=== PATIENT | male | born 2000 | race Caucasian/White ===

== ENCOUNTER 2020-03-30 08:05 | Emergency (ER) | payer SELFPAY ==
--- NOTE | 2020-03-30 09:15 | EDM.PDOC ---
ED HPI GENERAL MEDICAL PROBLEM - General Chief Complaint: Gastrointestinal Problem Stated Complaint: DIARRHEA AND VOMITING Time Seen by Provider: 03/30/20 08:32 Source of Information: Reports: Patient History Limitations: Reports: No Limitations - History of Present Illness INITIAL COMMENTS - FREE TEXT/NARRATIVE: This is a very pleasant 20-year-old male with no past medical history presenting with infectious symptoms. He reports a 5-day history of nausea, vomiting, diarrhea, cough, intermittent headache, and chills. One of his coworkers was diagnosed with COVID-19 last week. Symptoms have persisted, seeking him to seek evaluation in the emergency department. He has not been taking any medications at home before arrival. He denies any headache, neck stiffness, shortness of breath, chest pain, and difficulty speaking or swallowing, back pain, hematemesis, bloody stools, rash. Past medical history: Reviewed, no additional pertinent history. Surgical history: Reviewed in system, no additional pertinent history. Social history: Reviewed in system, no additional pertinent history. Family history: Reviewed in system, no additional pertinent history. Limited physical examination was performed due to COVID pandemic, distanced physical examination to prevent physician exposure and to preserve PPE. Vital signs reviewed. Nursing notes reviewed. Constitutional: Awake, alert, non-distressed. Head: Normocephalic, atraumatic. Eyes: No scleral icterus. Neck: Able to fully flex and extend. Fully rotates side to side. Cardiovascular: No extremity edema. Pulmonary: normal work of breathing, no accessory muscle use. Speaking in full sentences, handling secretions well. Abdomen/GI: nondistended, nontender Musculoskeletal: No deformities. Integumentary: Appropriate color for ethnicity, warm, dry, no pallor or jaundice, no rash. Neurologic: Alert, answering questions appropriately, normal speech, no facial droop, moving all extremities well. Normal voice. Psychiatric: Appropriate mood and affect, normal thought process. This patient was seen and evaluated during the 2019 SARS-CoV-2 novel coronavirus pandemic period. Community viral transmission is ongoing at time of this encounter and widespread universal testing is not currently available in our emergency department. - Related Data Allergies Allergy/AdvReac Type Severity Reaction Status Date / Time No Known Allergies Allergy Verified 03/30/20 08:24 Home Meds: Home Meds Loperamide HCl [Imodium A-D] 2 mg PO Q4H PRN #20 tablet 03/30/20 [Rx] Ondansetron [Zofran] 4 mg PO Q8H PRN #15 tab 03/30/20 [Rx] Past Medical History - Past Surgical History GI Surgical History: Reports: Hernia Repair/Other Social & Family History - Tobacco Use Tobacco Use Status *Q: Never Tobacco User - Recreational Drug Use Recreational Drug Use: No ED ROS GENERAL - Review of Systems Review Of Systems: See Below ED EXAM, GENERAL - Physical Exam Exam: See Below Course - Vital Signs Text/Narrative:: Patient hemodynamically stable, afebrile, well-appearing, looks nontoxic. Differential diagnosis includes but is not limited to: COVID-19 infection, acute viral syndrome, viral gastroenteritis, less likely volume depletion or electrolyte disturbance, etc. Abdomen soft and nontender. No peritoneal signs. Patient does not appear systemically ill or toxic. Suspect an acute viral infection. Rapid Covid testing is negative, stay PCR swab was sent. I explained the patient it is possible that he actually has COVID-19 in the limitations of the rapid test including possibility of a false negative result. I instructed him to isolate at home until he has been well for at least 24 hours. We discussed symptomatic treatment with [id number] Tylenol and Motrin, plenty of fluids, and I sent a prescription for Zofran and Imodium to the pharmacy. We discussed return precautions and he voiced understanding. Plan: Patient is stable to discharge home with outpatient primary care clinic follow-up. Strict emergency department return precautions were provided, patient indicated understanding. All questions were answered prior to departure. Discharged in good condition. Last Recorded V/S: Last Vital Signs Temp 37.2 C 03/30/20 08:54 Pulse 58 L 03/30/20 09:22 Resp 16 03/30/20 09:22 BP 127/74 03/30/20 09:22 Pulse Ox 100 03/30/20 09:22 - Orders/Labs/Meds Orders: Active Orders 24 hr Category Date Time Status CORONAVIRUS COVID-19 PCR [facility] Stat Lab 03/30/20 08:45 Received Labs: Laboratory Tests 03/30/20 Range/Units 08:45 SARS CoV-2 RNA Rapid HONG NEGATIVE (NEGATIVE) Departure - Departure Time of Disposition: 09:20 Disposition: Home, Self-Care 01 Condition: Good Clinical Impression: Acute viral syndrome, Nausea, vomiting, and diarrhea, Encounter for laboratory testing for COVID-19 virus - Discharge Information *PRESCRIPTION DRUG MONITORING PROGRAM REVIEWED*: Not Applicable *COPY OF PRESCRIPTION DRUG MONITORING REPORT IN PATIENT SONI: Not Applicable Prescriptions: Loperamide HCl [Imodium A-D] 2 mg PO Q4H PRN #20 tablet PRN Reason: Diarrhea Ondansetron [Zofran] 4 mg PO Q8H PRN #15 tab PRN Reason: Nausea/Vomiting Instructions: Diarrhea, Adult, Viral Illness, Adult Referrals: [facility] [Provider Group] - 1 Week (As needed) Forms: ED Department Discharge Additional Instructions: You were seen in the emergency department for vomiting and diarrhea. Your symptoms are likely due to a viral illness. Your COVID-19 test was negative, this is not definitive. It is possible to still have COVID-19 despite a false negative test result. I recommend that you isolate at home until you have been feeling better for at least 24 hours which includes no fever, chills, coughing, body aches, etc. Be sure to wash your hands frequently and cover your face with a face covering her mask. Do not let anybody eat or drink after you. I sent the prescriptions to the pharmacy for nausea and diarrhea medications. You can take Tylenol or Motrin [id number] for pain or fever. Please follow the family medicine clinic in the next week or so if you are not feeling better. Warning signs to come back to the ER include severe abdominal or chest pain, shortness of breath, bloody stools or vomit, or any other new or concerning symptoms. Please return the emergency department immediately if your symptoms worsen or if you feel worse. Thank you for choosing the [facility] emergency department in [place] for your medical needs today. It was a pleasure caring for you. The following information is given to patients seen in the emergency department who are being discharged. This information is to outline your options for follow-up care. We provide all patients seen in our emergency department with a follow-up referral. The need for follow-up, as well as the timing and circumstances, are variable depending upon the specifics of your emergency department visit. If you don't have a primary care physician on staff, we will provide you with a referral. We always advise you to contact your personal physician following an emergency department visit to inform them of the circumstance of the visit and for follow-up with them and/or the need for any referrals to a consulting specialist. The emergency department will also refer you to a specialist when appropriate. This referral assures that you have the opportunity for follow-up care with a specialist. All of these measure are taken in an effort to provide you with optimal care, which includes your follow-up. Under all circumstances we always encourage you to contact your private physician who remains a resource for coordinating your care. When calling for follow-up care, please make the office aware that this follow-up is from your recent emergency room visit. If for any reason you are refused follow-up, please contact the [facility] Emergency Department at and asked to speak to the emergency department charge nurse. If you do not have a primary care physician that is caring for you, you can contact these clinics below to set up an appointment to establish care: [facility] - Primary Care [address] [place] [id number] [facility] [address] [place] [id number] Sepsis Event Note (ED) - Evaluation Sepsis Screening Result: No Definite Risk - Focused Exam Vital Signs: Vital Signs Temp Pulse Resp BP Pulse Ox 03/30/20 09:22 58 L 16 127/74 100 03/30/20 08:54 37.2 C 57 L 16 118/73 98 03/30/20 08:21 37.4 C 63 16 133/70 99 - My Orders Last 24 Hours: My Active Orders 03/30/20 08:45 CORONAVIRUS COVID-19 PCR [facility] Stat - Assessment/Plan Last 24 Hours: My Active Orders 03/30/20 08:45 CORONAVIRUS COVID-19 PCR [facility] Stat
== END 2020-03-30 09:38 | disposition home or self-care (01) ==
LOC: MW.ED 08:05
DX: B34.9 Viral infection, unspecified (principal); Z20.828 Contact with and (suspected) exposure to other viral communicable diseases
CPT/HCPCS: 99284; U0002

== ENCOUNTER 2020-09-30 16:26 | Emergency (ER) | payer SELFPAY ==
[2020-09-30] MEDS ORDERED: Sodium Chloride 0.9% 1,000 ML IV ONE (17:49)
[2020-09-30 18:51] LABS: BLOOD UREA NITROGEN,BUN 14 mg/dL (7.0-18.0); CARBON DIOXIDE,CO2 27.9 mmol/L (21.0-32.0); CHLORIDE,CL 104 mmol/L (98-107); GLUCOSE RANDOM 90 mg/dL (74-106); LIPASE 95 U/L (73-393); POTASSIUM,K 3.7 mmol/L (3.5-5.1); SODIUM,NA 141 mmol/L (136-148)
--- NOTE | 2020-09-30 19:12 | CT ---
INDICATION: RIGHT FLANK PAIN CT ABDOMEN AND PELVIS WITHOUT CONTRAST TECHNIQUE: Multidetector CT imaging was performed through the abdomen and pelvis without intravenous or oral contrast. Coronal and sagittal reconstructions were generated. COMPARISON: None. FINDINGS: No stones are visualized within the kidneys, ureters, or urinary bladder. There is no ureteral dilation, hydronephrosis, or perinephric/periureteral stranding to suggest ureteral obstruction. Included portions of the lower chest show the lung bases to be clear. No abnormalities are demonstrated in the unenhanced liver, spleen, gallbladder, pancreas, stomach, and adrenals. Bowel loops are of normal caliber and demonstrate no wall thickening. The appendix is normal. No free fluid or free air is identified. The abdominal aorta appears normal in caliber. No abnormally enlarged lymph nodes are seen. The urinary bladder, prostate, and seminal vesicles are within normal limits. Visualized bones show no acute findings. IMPRESSION: No acute abnormality identified. No cause for the patient`s symptoms is apparent. TROY POTTER MD [employer] Dictated by: Aidan Potter MD @ 09/30/2020 19:11:20 (Electronically Signed)
--- NOTE | 2020-09-30 19:14 | EDM.PDOC ---
ED HPI GENERAL MEDICAL PROBLEM - General Chief Complaint: Back Pain or Injury Stated Complaint: LOWER BACK PAIN Time Seen by Provider: 09/30/20 17:08 Source of Information: Reports: Patient History Limitations: Reports: No Limitations - History of Present Illness INITIAL COMMENTS - FREE TEXT/NARRATIVE: HISTORY AND PHYSICAL: History of present illness: Patient is a 20-year-old male who presents to the ED today with concern of bilateral flank pain, worse on the right than the left has been ongoing over the past 1 week. Patient states that 1 week ago he thought he had a viral illness and states that he had a "GI bug "and states he was having diarrhea and vomiting. Patient states that on the day that his symptoms improved, he began having right flank pain and states that occasionally having some left-sided flank pain as well. Patient describes as sharp and states that it comes and goes. Patient states that he was also concerned because his urine has been dark in color ever since starting with the pain. Patient states he has not taken any medications for his symptoms and denies any health history. Patient denies any trauma or injury. Patient states that he is in a monogamous relationship and has been so for many years. Patient denies fever, chills, chest pain, shortness of breath, or cough. Denies headache, neck stiff ness, change in vision, syncope, or near syncope. Denies nausea, vomiting, abdominal pain, diarrhea, constipation, or dysuria. Has not noted any blood in urine or stool. Patient has been eating and drinking appropriately. Review of systems: As per history of present illness and below otherwise all systems reviewed and negative. Past medical history: As per history of present illness and as reviewed below otherwise noncontributory. Surgical history: As per history of present illness and as reviewed below otherwise noncontributory. Social history: See social history for further information Family history: As per history of present illness and as reviewed below otherwise noncontributory. Physical exam: General: Patient is alert, oriented, and in no acute distress. Patient sitting comfortably on exam table. Vitals stable and reviewed by me. HEENT: Atraumatic, normocephalic, pupils equal and reactive bilaterally, negative for conjunctival pallor or scleral icterus, mucous membranes moist, TMs normal bilaterally, throat clear, neck supple, nontender, trachea midline. No drooling or trismus noted. No meningeal signs. No hot potato voice noted. Lungs: Clear to auscultation, breath sounds equal bilaterally, chest nontender. Heart: S1S2, regular rate and rhythm without overt murmur Abdomen: Soft, nondistended, nontender. Negative for masses or hepatosplenomegaly. Negative for costovertebral tenderness but tenderness over the left sided flank area to palpation. Pelvis: Stable nontender. Genitourinary: Deferred. Rectal: Deferred. Skin: Intact, warm, dry. No lesions or rashes noted. Extremities: Atraumatic, negative for cords or calf pain. Neurovascular unremarkable. Neuro: Awake, alert, oriented. Cranial nerves II through XII unremarkable. Cerebellum unremarkable. Motor and sensory unremarkable throughout. Exam nonfocal. Notes: Signs and symptoms that would prompt return to the ED thoroughly discussed with patient. Discussed importance for follow-up with a primary care provider. Voices understanding and is agreeable to plan of care. Denies any further questions or concerns at this time. Diagnostics: CBC, CMP, UA, G&C, Abd/Pelvic CT w/o cont Therapeutics: None Prescription: None Impression: Right flank pain Plan: 1. You can alternate ibuprofen and Tylenol as directed for pain and discomfort. 2. Follow-up with your primary care provider as discussed. Return to the ED as needed and as discussed. Definitive disposition and diagnosis as appropriate pending reevaluation and review of above. flanks Pain Score (Numeric/FACES): 6 - Related Data Allergies Allergy/AdvReac Type Severity Reaction Status Date / Time No Known Allergies Allergy Verified 09/30/20 17:20 Home Meds: Home Meds . [No Known Home Meds] 09/30/20 [History] Past Medical History - Past Surgical History GI Surgical History: Reports: Hernia Repair/Other Social & Family History - Family History Family Medical History: No Pertinent Family History - Caffeine Use Caffeine Use: Reports: None - Recreational Drug Use Recreational Drug Use: No ED ROS GENERAL - Review of Systems Review Of Systems: Comprehensive ROS is negative, except as noted in HPI. ED EXAM, GENERAL - Physical Exam Exam: See Below (see dictation) Course - Vital Signs Last Recorded V/S: Last Vital Signs Temp 97.8 F 09/30/20 19:29 Pulse 56 L 09/30/20 19:29 Resp 18 04/27/21 19:29 BP 111/56 L 09/30/20 19:29 Pulse Ox 97 09/30/20 19:29 - Orders/Labs/Meds Orders: Active Orders 24 hr Category Date Time Status CHLAMYDIA AND GONORRHEA BY TMA Stat Lab 09/30/20 17:13 Received Labs: Laboratory Tests 09/30/20 09/30/20 09/30/20 Range/Units 16:07 16:07 17:13 WBC 9.70 (4.0-11.0) K/uL RBC 4.99 (4.50-5.90) M/uL Hgb 14.7 (13.0-17.0) g/dL Hct 43.9 (38.0-50.0) % MCV 88.0 (80.0-98.0) fL MCH 29.5 (27.0-32.0) pg MCHC 33.5 (31.0-37.0) g/dL RDW Std Deviation 39.9 (28.0-62.0) fl RDW Coeff of Delmy 13 (11.0-15.0) % Plt Count 307 (150-400) K/uL MPV 9.10 (7.40-12.00) fL Neut % (Auto) 50.0 (48.0-80.0) % Lymph % (Auto) 41.2 H (16.0-40.0) % Frontier % (Auto) 7.2 (0.0-15.0) % Eos % (Auto) 1.4 (0.0-7.0) % Baso % (Auto) 0.2 (0.0-1.5) % Neut # (Auto) 4.8 (1.4-5.7) K/uL Lymph # (Auto) 4.0 H (0.6-2.4) K/uL Frontier # (Auto) 0.7 (0.0-0.8) K/uL Eos # (Auto) 0.1 (0.0-0.7) K/uL Baso # (Auto) 0.0 (0.0-0.1) K/uL Nucleated RBC % 0.0 /100WBC Nucleated RBCs # 0 K/uL Sodium 141 (136-148) mmol/L Potassium 3.7 (3.5-5.1) mmol/L Chloride 104 (98-107) mmol/L Carbon Dioxide 27.9 (21.0-32.0) mmol/L BUN 14 (7.0-18.0) mg/dL Creatinine 1.1 (0.8-1.3) mg/dL Est Cr Clr Drug Dosing 125.90 mL/min Estimated GFR (MDRD) > 60.0 ml/min Glucose 90 (74-106) mg/dL Calcium 8.8 (8.5-10.1) mg/dL Total Bilirubin 0.4 (0.2-1.0) mg/dL AST 27 (15-37) IU/L ALT 70 H (14-63) IU/L Alkaline Phosphatase 123 H (46-116) U/L Total Protein 7.8 (6.4-8.2) g/dL Albumin 4.0 (3.4-5.0) g/dL Globulin 3.8 (2.6-4.0) g/dL Albumin/Globulin Ratio 1.1 (0.9-1.6) Lipase 95 (73-393) U/L Urine Color YELLOW Urine Appearance CLEAR Urine pH 6.5 (5.0-8.0) Ur Specific [place] 1.025 (1.001-1.035) Urine Protein NEGATIVE (NEGATIVE) mg/dL Urine Glucose (UA) NEGATIVE (NEGATIVE) mg/dL Urine Ketones NEGATIVE (NEGATIVE) mg/dL Urine Occult Blood NEGATIVE (NEGATIVE) Urine Nitrite NEGATIVE (NEGATIVE) Urine Bilirubin NEGATIVE (NEGATIVE) Urine Urobilinogen 0.2 (<2.0) EU/dL Ur Leukocyte Esterase NEGATIVE (NEGATIVE) Meds: Medications Discontinued Medications Generic Name Dose Route Start Last Admin Trade Name Shlomo PRN Reason Stop Dose Admin Sodium Chloride 1,000 mls @ 999 mls/hr 09/30/20 17:49 09/30/20 17:55 Normal Saline IV 09/30/20 18:49 999 mls/hr BOLUS ONE Administration Departure - Departure Time of Disposition: 19:13 Disposition: Home, Self-Care 01 Clinical Impression: Right flank pain - Discharge Information Instructions: Flank Pain, Adult Referrals: PCP,None [Primary Care Provider] - Forms: ED Department Discharge Additional Instructions: The following information is given to patients seen in the emergency department who are being discharged to home. This information is to outline your options for follow-up care. We provide all patients seen in our emergency department with a follow-up referral. The need for follow-up, as well as the timing and circumstances, are variable depending upon the specifics of your emergency department visit. If you don't have a primary care physician on staff, we will provide you with a referral. We always advise you to contact your personal physician following an emergency department visit to inform them of the circumstance of the visit and for follow-up with them and/or the need for any referrals to a consulting specialist. The emergency department will also refer you to a specialist when appropriate. This referral assures that you have the opportunity for follow-up care with a specialist. All of these measure are taken in an effort to provide you with optimal care, which includes your follow-up. Under all circumstances we always encourage you to contact your private physician who remains a resource for coordinating your care. When calling for follow-up care, please make the office aware that this follow-up is from your recent emergency room visit. If for any reason you are refused follow-up, please contact the [facility] Emergency Department at and asked to speak to the emergency department charge nurse. [facility] [address] [place] [address] [place] [address] 1. You can alternate ibuprofen and Tylenol as directed for pain and discomfort. 2. Follow-up with your primary care provider as discussed. Return to the ED as needed and as discussed. Sepsis Event Note (ED) - Evaluation Sepsis Screening Result: No Definite Risk - Focused Exam Vital Signs: Vital Signs Temp Pulse Resp BP Pulse Ox 09/30/20 19:29 97.8 F 56 L 18 111/56 L 97 09/30/20 17:18 98.2 F 82 16 145/86 H 97 - My Orders Last 24 Hours: My Active Orders 09/30/20 17:13 CHLAMYDIA AND GONORRHEA BY [facility] Stat - Assessment/Plan Last 24 Hours: My Active Orders 09/30/20 17:13 CHLAMYDIA AND GONORRHEA BY TMA Stat
[2020-10-02 11:03] LABS: C.TRACHOMATIS BY TMA Negative (Negative); N.GONORRHOEAE BY TMA Negative (Negative)
== END 2020-09-30 19:30 | disposition home or self-care (01) ==
LOC: MW.ED 16:26
DX: R10.9 Unspecified abdominal pain (principal)
CPT/HCPCS: 36415; 74176; 80053; 81003; 83690; 85025; 87491; 87591; 99284; J7030; 99283

== ENCOUNTER 2020-10-16 06:46 | Emergency (ER) | payer SELFPAY ==
--- NOTE | 2020-10-16 07:41 | EDM.PDOC ---
ED HPI GENERAL MEDICAL PROBLEM - General Chief Complaint: Abdominal Pain Stated Complaint: POSSIBLE KIDNEY STONES Time Seen by Provider: 10/16/20 07:12 - History of Present Illness INITIAL COMMENTS - FREE TEXT/NARRATIVE: CHIEF COMPLAINT(S): Here for repeat labs HISTORY OF PRESENT ILLNESS: This is a 20-year-old man without any significant past medical history who comes to the emergency department with a chief complaint of here for repeat labs. The patient states that for off-and-on for the last month he has been experiencing stuffy nose, eye watering, and frontal headache associated with sore throat which she describes as a drip. He states that his son and are having similar symptoms he is never really had anything like this before. He denies any chest pain or shortness of breath. He states that he does feel weak and fatigued. He states that he does not have a primary care physician and is moving here to [place]. He states that he was told to come back because of elevated liver enzymes for repeat. In addition he states that he has missed 3 days of work. He denies any other symptoms. He states that his last visit he was concerned about some right flank and right upper abdominal pain. He states that he does have some continued abdominal pain in the right upper quadrant which is rated 3 out of 10. He states that it is intermittent. He does not know any exacerbating factors. He denies any relieving factors. Denies any associated nausea or vomiting. He denies any diarrhea, constipation, melena, hematemesis, bilious emesis. REVIEW OF SYSTEMS: Constitutional: Denies fever, chills. Eyes: Denies eye pain Ears, Nose, Mouth, & Throat: Positive for runny nose, watery eyes, congestion. Denies earache Cardiovascular: Denies chest pain Respiratory: Denies shortness of breath Gastrointestinal: Denies Nausea, vomiting, diarrhea, hematochezia. Genitourinary: Denies hematuria Skin:Denies a rash MSK: Denies joint pain Neurological: Denies blurred vision Psychiatric: Denies depression PAST MEDICAL HISTORY: As per history of present illness and as reviewed below otherwise noncontributory. SURGICAL HISTORY: As per history of present illness and as reviewed below otherwise noncontributory. SOCIAL HISTORY: As per history of present illness and as reviewed below otherwise noncontributory. FAMILY HISTORY: As per history of present illness and as reviewed below otherwise noncontributory. EXAMINATION OF ORGAN SYSTEMS/BODY AREAS: Constitutional: Blood pressure is 132/74, heart rate 77, respiratory rate 17 with an oxygen saturation 95% on room air. Temperature 36.2 General: Overall well-appearing man who is in no acute distress Psychiatric: Appropriate mood and affect. Eyes: No scleral icterus or conjunctival erythema ENMT: Moist mucous membranes. No pharyngeal erythema there is some cobblestoning of the posterior pharynx with evidence of postnasal drip. There is clear nasal drainage. Cardiovascular: Regular, rate, and rhythm. No gallops, murmurs, or rubs. Bilateral upper extremity pulses symmetric and intact. No peripheral edema. No JVD. Respiratory: Lungs clear to auscultation bilaterally. No wheezes, rales, or rhonchi. Gastrointestinal: Soft, non-tender, non-distended. Normoactive bowel sounds no rebound or guarding Genitourinary: No suprapubic tenderness Musculoskeletal: Normal range of motion. Skin: No lesions or abrasions. Neurological: Alert, GCS 15 MEDICAL DECISION MAKING AND COURSE IN THE ED WITH INTERPRETATION/REVIEW OF DIAGNOSTIC STUDIES: This is a 20-year-old man without any significant past medical history who comes to the emergency department with what appears to be symptoms of allergic rhinitis and concern for elevated liver enzymes. At this time I do not believe an emergent condition exists however we will obtain repeat CMP for evaluation. Given his right upper quadrant pain this could be secondary to cholelithiasis versus cholecystitis we will obtain a right upper quadrant ultrasound. We will also obtain a Tylenol level. I did discuss with him that even if the enzymes are elevated I would like him to follow-up with his primary care physician when he moves to [place]. I did discuss the use of Zyrtec at night and Flonase spray for his allergy symptoms. He was amenable to this. I did send the Flonase to the pharmacy. Laboratory: CMP reveals transaminitis with an AST of 61, ALT of 139 and alkaline phosphatase of 170. Tylenol level is negative. The radiological images were viewed by myself along with reading the report from the radiologist. Right upper quadrant ultrasound reveals gallbladder sludge without any evidence of cholecystitis or ductal dilation. After labs and imaging the patient continued to remain stable. I did discuss the results with the patient. I did discuss with him that given the gallbladder sludge he needs to return to the emergency department if he has worsening pain. Otherwise given that he is moving to [place] he needs to set up an appointment with a primary care physician for any referral to general surgery for further evaluation. He was amenable discharge at this time and had no further questions DISPOSITION: The patient was discharged home in stable condition. The patient will follow up with primary care physician CONDITION: Fair PROCEDURES: None FINAL IMPRESSION(S)/DIAGNOSES: 1. Acute allergic rhinitis 2. Acute gallbladder sludge Asa Thurman M.D. Lower Abdomen Pain Score (Numeric/FACES): 4 - Related Data Allergies Allergy/AdvReac Type Severity Reaction Status Date / Time No Known Allergies Allergy Verified 10/16/20 06:54 Home Meds: Home Meds Fluticasone Propionate [Flonase] 16 gm .XX BID #1 bottle 10/16/20 [Rx] Past Medical History - Past Health History Medical/Surgical History: Denies Medical/Surgical History HEENT History: Reports: None Cardiovascular History: Reports: None Respiratory History: Reports: None Gastrointestinal History: Reports: None Genitourinary History: Reports: None Musculoskeletal History: Reports: None Neurological History: Reports: None Psychiatric History: Reports: None Endocrine/Metabolic History: Reports: None Hematologic History: Reports: None Immunologic History: Reports: None Dermatologic History: Reports: None - Infectious Disease History Infectious Disease History: Reports: None - Past Surgical History Head Surgeries/Procedures: Reports: None Cardiovascular Surgical History: Reports: None GI Surgical History: Reports: Hernia Repair/Other Social & Family History - Family History Family Medical History: No Pertinent Family History - Tobacco Use Tobacco Use Status *Q: Never Tobacco User - Caffeine Use Caffeine Use: Reports: None - Recreational Drug Use Recreational Drug Use: No ED ROS GENERAL - Review of Systems Review Of Systems: See Below ED EXAM, GENERAL - Physical Exam Exam: See Below Course - Vital Signs Last Recorded V/S: Last Vital Signs Temp 36.8 C 10/16/20 08:30 Pulse 80 10/16/20 10:36 Resp 18 10/16/20 08:30 BP 127/75 10/16/20 10:36 Pulse Ox 98 10/16/20 10:36 - Orders/Labs/Meds Labs: Laboratory Tests 10/16/20 10/16/20 Range/Units 07:37 07:37 Sodium 140 (136-148) mmol/L Potassium 4.6 (3.5-5.1) mmol/L Chloride 104 (98-107) mmol/L Carbon Dioxide 26.9 (21.0-32.0) mmol/L BUN 10 (7.0-18.0) mg/dL Creatinine 1.0 (0.8-1.3) mg/dL Est Cr Clr Drug Dosing 138.49 mL/min Estimated GFR (MDRD) > 60.0 ml/min Glucose 112 H (74-106) mg/dL Calcium 8.5 (8.5-10.1) mg/dL Total Bilirubin 0.4 (0.2-1.0) mg/dL AST 61 H (15-37) IU/L ALT 139 H (14-63) IU/L Alkaline Phosphatase 170 H (46-116) U/L Total Protein 8.1 (6.4-8.2) g/dL Albumin 3.9 (3.4-5.0) g/dL Globulin 4.2 H (2.6-4.0) g/dL Albumin/Globulin Ratio 0.9 (0.9-1.6) Acetaminophen <2.0 ug/mL Departure - Departure Time of Disposition: 10:10 Disposition: Home, Self-Care 01 Condition: Fair Clinical Impression: Gallbladder sludge, Allergic rhinitis - Discharge Information *PRESCRIPTION DRUG MONITORING PROGRAM REVIEWED*: No *COPY OF PRESCRIPTION DRUG MONITORING REPORT IN PATIENT SONI: No Prescriptions: Fluticasone Propionate [Flonase] 16 gm .XX BID #1 bottle Instructions: Allergic Rhinitis, Adult, [id number], Biliary Dyskinesia Referrals: PCP,None [Primary Care Provider] - Forms: ED Department Discharge Additional Instructions: You were evaluated today on an emergent basis. At this time I do suspect your runny nose, watery eyes and sore throat are likely due to allergies. I do recommend the use of Zyrtec 1 tablet a day at bedtime and Flonase 1 spray each nostril twice a day. In addition you were concerned about elevated liver enzymes. Your enzymes were repeated and they were slightly elevated from before. We did obtain an ultrasound to evaluate your gallbladder. There was no stones in your gallbladder however there was some sludge. There was no signs of infection. At this time I do recommend that given that you are moving that you set up a primary care appointment as soon as possible at your new home and get a referral to a general surgeon for possible removal of your gallbladder. If you have any worsening pain in the right side of your stomach please return to the emergency department. [facility] - [facility] [address] [place] [address] [facility] [address] [place] [id number] The patient is informed of any results of their evaluation and diagnostic workup and all questions are answered. They are given discharge instructions and return precautions. The patient is stable for discharge. The patient states they understand and agree with the plan and that they will return if their symptoms get worse or if they have any new concerns. The following information is given to patients seen in the emergency department who are being discharged to home. This information is to outline your options for follow-up care. We provide all patients seen in our emergency department with a follow-up referral. The need for follow-up, as well as the timing and circumstances, are variable depending upon the specifics of your emergency department visit. If you don't have a primary care physician on staff, we will provide you with a referral. We always advise you to contact your personal physician following an emergency department visit to inform them of the circumstance of the visit and for follow-up with them and/or the need for any referrals to a consulting specialist. The emergency department will also refer you to a specialist when appropriate. This referral assures that you have the opportunity for follow-up care with a specialist. All of these measure are taken in an effort to provide you with optimal care, which includes your follow-up. Under all circumstances we always encourage you to contact your private physician who remains a resource for coordinating your care. When calling for follow-up care, please make the office aware that this follow-up is from your recent emergency room visit. If for any reason you are refused follow-up, please contact the [facility] Emergency Department at and asked to speak to the emergency department charge nurse. Sepsis Event Note (ED) - Evaluation Sepsis Screening Result: No Definite Risk - Focused Exam Vital Signs: Vital Signs Temp Pulse Resp BP Pulse Ox 10/16/20 10:36 80 127/75 98 10/16/20 08:30 36.8 C 78 18 119/77 98 10/16/20 06:55 36.2 C 77 17 132/74 95
[2020-10-16 08:11] LABS: BLOOD UREA NITROGEN,BUN 10 mg/dL (7.0-18.0); CARBON DIOXIDE,CO2 26.9 mmol/L (21.0-32.0); CHLORIDE,CL 104 mmol/L (98-107); GLUCOSE RANDOM 112 mg/dL (74-106); POTASSIUM,K 4.6 mmol/L (3.5-5.1); SODIUM,NA 140 mmol/L (136-148)
--- NOTE | 2020-10-16 10:07 | US ---
CLINICAL HISTORY: Elevated liver function tests. COMPARISON: none TECHNIQUE: 2D palacios scale imaging and color Doppler analysis was performed of the abdomen. FINDINGS: Sonographic imaging demonstrates normal size and uniform echotexture of the liver. There is no evidence of ascites. The spleen is of normal size. The pancreas appears normal. The proximal abdominal aorta and IVC appear normal. The gallbladder is of normal size and there is a small amount of sludge within the gallbladder lumen. Patient was not focally tender over the gallbladder during the exam. The gallbladder wall measures 2.1 mm in thickness. The common bile duct measures 3.4 mm in size within the rylan hepatis. The right kidney measures 12.1 cm in length. There is no evidence of a renal calculus or hydronephrosis. IMPRESSION: Small amount of biliary sludge noted within the gallbladder. No acute process identified. Dictated by Jhonny Winkler MD @ 10/16/2020 10:07:[address] Jhonny Winkler @ Oct 16 2020 10:07AM
== END 2020-10-16 10:35 | disposition home or self-care (01) ==
LOC: MW.ED 06:46
DX: J30.9 Allergic rhinitis, unspecified (principal); K82.8 Other specified diseases of gallbladder
CPT/HCPCS: 36415; 76705; 76705-26; 80053; 80143; 99283; 99284-25

== ENCOUNTER 2021-05-07 08:34 | Emergency (ER) | payer SELFPAY ==
[2021-05-07] MEDS ORDERED: Azithromycin 250 MG Tab PO ONE (08:48)
== END 2021-05-07 08:57 | disposition home or self-care (01) ==
LOC: MW.ED 08:34
DX: J02.0 Streptococcal pharyngitis (principal)
CPT/HCPCS: 99283; A9270

== ENCOUNTER 2021-10-19 21:51 | Emergency (ER) | payer SELFPAY ==
[2021-10-19] MEDS ORDERED: Ketorolac 30 MG/ML SDV IM ONE (22:44)
[2021-10-19 23:22] LABS: CORONAVIRUS COVID-19 NAA NEGATIVE (NEGATIVE); INFLUENZA A NAA NEGATIVE (NEGATIVE); INFLUENZA B NAA NEGATIVE (NEGATIVE)
== END 2021-10-19 23:50 | disposition home or self-care (01) ==
LOC: MW.ED 21:51
DX: S20.211A Contusion of right front wall of thorax, initial encounter (principal); R06.00 Dyspnea, unspecified; Z72.0 Tobacco use; Z20.822 Contact with and (suspected) exposure to COVID-19; V00.131A Fall from skateboard, initial encounter
CPT/HCPCS: 0240U; 71045; 93005; 96372; 99284; J1885

== ENCOUNTER 2022-11-21 19:11 | Emergency (ER) | payer SELFPAY ==
[2022-11-21] MEDS ORDERED: Sodium Chloride 0.9% 1,000 ML IV ONE (20:18)
[2022-11-21 20:31] LABS: APPEARANCE,URINE CLEAR; BILIRUBIN,URINE NEGATIVE (NEGATIVE); COLOR,URINE YELLOW; GLUCOSE,URINE NEGATIVE (NEGATIVE); KETONES,URINE NEGATIVE (NEGATIVE); LEUKOCYTE ESTERASE,URINE NEGATIVE (NEGATIVE); NITRITE,URINE NEGATIVE (NEGATIVE); OCCULT BLOOD,URINE NEGATIVE (NEGATIVE); PH,URINE 5.5 (5.0-8.0); PROTEIN,URINE NEGATIVE (NEGATIVE); UROBILINOGEN,URINE 0.2 EU/dL (<2.0)
[2022-11-21] MEDS ORDERED: Acetaminophen 325 MG Tab PO ONE (21:01)
[2022-11-21] MEDS ORDERED: Ibuprofen 400 MG Tab PO ONE (21:01)
[2022-11-21 22:00] LABS: C. TRACHOMATIS BY PCR NOT DETECTED; N. GONORRHOEAE BY PCR NOT DETECTED
== END 2022-11-21 22:28 | disposition home or self-care (01) ==
LOC: MW.ED 19:11
DX: N45.2 Orchitis (principal)
CPT/HCPCS: 76870; 81003; 87491; 87591; 93976; 99284; A9270

== ENCOUNTER 2023-01-13 23:24 | Emergency (ER) | payer BC ==
[2023-01-13] MEDS ORDERED: Sodium Chloride 0.9% 2.5 ML Syringe FLUSH PRN (23:35)
[2023-01-13] MEDS ORDERED: Sodium Chloride 0.9% 10 ML Syringe FLUSH PRN (23:35)
[2023-01-13 23:53] LABS: BASOPHILS PERCENT AUTO 0.2 % (0.0-1.5); EOSINOPHILS ABSOLUTE AUTO 0.2 K/uL (0.0-0.7); EOSINOPHILS PERCENT AUTO 2.6 % (0.0-7.0); HEMATOCRIT 45.9 % (38.0-50.0); HEMOGLOBIN 15.7 g/dL (13.0-17.0); LYMPHOCYTES PERCENT AUTO 45.7 % (16.0-40.0); MEAN CORPUSCULAR HEMOGLOBIN 29.7 pg (27.0-32.0); MEAN CORPUSCULAR HGB CONC 34.2 g/dL (31.0-37.0); MEAN CORPUSCULAR VOLUME 86.8 fL (80.0-98.0); MONOCYTES ABSOLUTE AUTO 0.6 K/uL (0.0-0.8); MONOCYTES PERCENT AUTO 6.4 % (0.0-15.0); NEUTROPHILS ABSOLUTE AUTO 3.9 K/uL (1.4-5.7); NEUTROPHILS PERCENT AUTO 45.1 % (48.0-80.0); NRBC ABSOLUTE 0 K/uL; PLATELET COUNT,PLT 322 K/uL (150-400); RED BLOOD CELL COUNT 5.29 M/uL (4.50-5.90); WHITE BLOOD CELL COUNT,WBC 8.75 K/uL (4.0-11.0)
[2023-01-14] LABS: BILIRUBIN,URINE NEGATIVE (NEGATIVE); COLOR,URINE YELLOW; GLUCOSE,URINE NEGATIVE (NEGATIVE); KETONES,URINE NEGATIVE (NEGATIVE); LEUKOCYTE ESTERASE,URINE NEGATIVE (NEGATIVE); NITRITE,URINE NEGATIVE (NEGATIVE); OCCULT BLOOD,URINE NEGATIVE (NEGATIVE); PH,URINE 6.5 (5.0-8.0); PROTEIN,URINE NEGATIVE (NEGATIVE)
[2023-01-14 00:09] LABS: EPITHELIAL CELLS,URINE RARE (NONE-FEW); RBC,URINE 0-2 (0-2/HPF); WBC,URINE 0-2 (0-5/HPF)
[2023-01-14 00:10] LABS: AMORPHOUS SEDIMENT,URINE MODERATE (NEGATIVE); APPEARANCE,URINE SLT CLOUDY; BACTERIA,URINE FEW (NEGATIVE)
[2023-01-14 00:22] LABS: A/G RATIO 1.1 (0.9-1.6); ALBUMIN 4.1 g/dL (3.4-5.0); BILIRUBIN TOTAL 0.3 mg/dL (0.2-1.0); CALCIUM 8.9 mg/dL (8.5-10.1); CARBON DIOXIDE,CO2 28.3 mmol/L (21.0-32.0); CREATININE 0.9 mg/dL (0.8-1.3); EST CRCL DRUG DOSING (CG) 159.5 mL/min; PROTEIN TOTAL,TP 7.9 g/dL (6.4-8.2)
[2023-01-14] MEDS ORDERED: Iopamidol 755 MG/ML 500 ML Multipack Bottle IVPUSH ONE (00:49)
== END 2023-01-14 02:08 | disposition home or self-care (01) ==
LOC: MW.ED 23:24
DX: R10.11 Right upper quadrant pain (principal)
CPT/HCPCS: 36415; 74177; 76705; 80053; 81001; 83690; 85025; 99284; J3490; Q9967

== ENCOUNTER 2023-09-13 18:29 | Emergency (ER) | payer BC ==
[2023-09-13] MEDS: Lidocaine 1% PF 2 ML SDV ONE (19:40)
== END 2023-09-13 19:50 | disposition home or self-care (01) ==
LOC: MW.ED 18:29
DX: H92.02 Otalgia, left ear (principal)
CPT/HCPCS: 99282; 99283; J3490